=== PATIENT | male | born 1960 | race Caucasian/White ===

== ENCOUNTER 2016-02-13 09:08 | Day surgery (SDC) | payer OTHER ==
--- NOTE | 2016-01-29 12:38 | HISTORY AND PHYSICAL E ---
History and Physical NAME: ALLI PAEZ : 1960 AGE: 56Y ADMITTED: 02/13/2016 ROOM: CHIEF COMPLAINT/HISTORY: Abdominal pain, reflux. Patient did have CT showing cholelithiasis, left hemangioma of the liver, diverticulosis with diverticulosis of the sigmoid colon in 2006, now he presented for reflux, abdominal pain. The patient did have recent colonoscopy locally. No findings. No issues. No polyps. He said he will give us a copy of the report, now he is with reflux, epigastric abdominal pain. SOCIAL HISTORY: . He smokes, 40 years. He drinks at times. PAST SURGICAL HISTORY: The patient had: 1. Tonsillectomy. 2. Appendectomy. 3. Cholecystectomy. 4. Left shoulder x2. REVIEW OF SYSTEMS: CARDIAC: Negative. RESPIRATORY: COPD, uses inhaler. ENDOCRINE: Negative. GASTROINTESTINAL: Reflux. Epigastric abdominal pain. MUSCULOSKELETAL: Arthritis. FAMILY HISTORY: Father is alive. Mom is alive. PHYSICAL EXAMINATION: VITAL SIGNS: Blood pressure is 110/70, pulse 60, respirations 18, temp is 98. HEAD, EYES, EARS, NOSE, THROAT: Normal. NECK: Supple. CARDIOVASCULAR: Normal. LUNGS: Clear. ABDOMEN: Soft. NEUROLOGIC: Exam negative. MEDICATIONS: 1. The patient takes meloxicam. 2. He takes hydrochlorothiazide. 3. Lisinopril. 4. He takes lansoprazole 15 mg. 5. Budesonide. 6. Sertraline. 7. Testosterone. 8. Albuterol. 9. The patient takes propranolol. 10. Tylenol. CONCLUSION: Abdominal pain and reflux. PLAN: Upper endoscopy scheduled for 02/12. DICTATING PHYSICIAN: ASHLEE BOSTON M.D. [id number] [id number] PHY#: [id number] ID: [id number] JOB#: [id number] ACCT: [id number] cc: >
[~2016-02-13 09:08] MED LIST: EPINEPHRINE INJ 1 MG/10 ML DISP.SYRIN ONE; FENTANYL CITRATE INJ/PF 100 MCG/2 ML AMPUL ONE; FLUMAZENIL INJ 0.5 MG/5 ML VIAL IV ONE; GLYCOPYRROLATE INJ 0.4 MG/2 ML VIAL ONE; MIDAZOLAM 2 MG/2 ML INJ ONE; NALOXONE HCL INJ/PF 0.4 MG/1 ML SDV ONE; ONDANSETRON HCL INJ/PF 4 MG/2 ML SDV ONE; PROMETHAZINE HCL INJ 25 MG/1 ML VIAL ONE
[2016-02-13 11:22] VITALS: BP 126/74
--- NOTE | 2016-02-13 14:40 | OPERATIVE REPORT E ---
Operative Report NAME: ALLI PAEZ : 1960 AGE: 56Y DATE OF SURGERY: 02/13/2016 ROOM: PREOPERATIVE DIAGNOSIS: Reflux. POSTOPERATIVE DIAGNOSES: 1. Esophagitis, mild. 2. Small hiatus hernia. 3. Possibility of early Gaffney's. 4. Gastroscopy shows no ulcers, mild duodenitis. OPERATIONS: 1. Esophagoscopy. 2. Gastroscopy. 3. Duodenoscopy. SURGEON: ASHLEE BOSTON M.D. TISSUE REMOVED OR ALTERED: None. ANESTHESIA: Versed 2 mg and fentanyl 50 mcg. MEDICATIONS: Patient takes baby aspirin and meloxicam. Patient's medications are multiple to mention. A few: Inderal, testosterone, low-dose aspirin, Mobic 15 mg, Prevacid, ProAir, Robaxin, Ultram, Zoloft, and Ambien. PROCEDURE: The endoscopy picture was consistent with early Gaffney's. Consider repeat upper endoscopy in 1 year. Baby scope passed under guided vision. No difficulties. Esophagogastric junction 35. Small protrusion of the gastric mucosa in the distal esophagus, about 1 cm, most likely short-segment Gaffney's. No evidence of malignancy. No stricture. No ulcers. Mild esophagitis. Small hiatus hernia. Gastroscopy: No ulcers. Mild gastritis. Duodenoscopy: No ulcers. Mild duodenitis. CONCLUSION: Small hiatus hernia with possibility of early Gaffney's. Recommend followup endoscopy in 1 year. Patient to stop the meloxicam and the aspirin prior to the next endoscopy and consideration for biopsy at that time. DICTATING PHYSICIAN: ASHLEE BOSTON M.D. [id number] [id number] Y#: [id number] ID: [id number] JOB#: [id number] ACCT: [id number] cc:ASHLEE BOSTON M.D. >
--- NOTE | 2016-02-13 14:40 | DISCHARGE SUMMARY E ---
Discharge Summary NAME: ALLI PAEZ : 1960 AGE: 56Y ADMITTED: 02/13/2016 DISCHARGED: 02/13/2016 HISTORY: The patient is 56 and underwent recent colonoscopy by Dr. Cruz showing diverticulosis. Now he presented with reflux. Upper scope showed a small hiatus hernia and possibility of early Gaffney, no ulcers, no bleeding. He does take Baby Aspirin and meloxicam. No biopsy obtained. DISCHARGE PLAN: Continue Prevacid or other PPI. Consideration of follow-up upper endoscopy in 1 year for evaluation of possibility of short-segment Gaffney's. No biopsy obtained on today's exam. Soft diet for 2 days. Resume all medications. The patient is to see us in the office in the next few days. DICTATING PHYSICIAN: ASHLEE BOSTON M.D. [id number] PHY#: [id number] ID: [id number] JOB#: [id number] ACCT: [id number] cc:ASHLEE BOSTON M.D. >
== END 2016-02-13 11:25 | disposition home or self-care (01) ==
LOC: END 09:08
PROVIDERS: ATTEND Specialist
PROC: 0DJ08ZZ Inspection of Upper Intestinal Tract, Via Natural or Artificial Opening Endoscopic (ICD-10-PCS; principal; 2016-02-13 10:00)
DX: K21.9 Gastro-esophageal reflux disease without esophagitis (principal); K21.0 Gastro-esophageal reflux disease with esophagitis; K44.9 Diaphragmatic hernia without obstruction or gangrene; K29.80 Duodenitis without bleeding; J44.9 Chronic obstructive pulmonary disease, unspecified; M19.90 Unspecified osteoarthritis, unspecified site; F17.210 Nicotine dependence, cigarettes, uncomplicated; Z79.51 Long term (current) use of inhaled steroids; Z79.899 Other long term (current) drug therapy
CPT/HCPCS: 43235; J2250; J3010; J2405; J0171; J2310; J2550; J3490